=== PATIENT | female | born 1995 | race Caucasian/White ===

== ENCOUNTER 2016-11-16 10:03 | Emergency (ER) | payer SELFPAY ==
[2016-11-16 10:13] VITALS: BMI 49.4
[2016-11-16 10:14] VITALS: BP 129/69
[2016-11-16 10:40] LABS: BILIRUBIN,URINE NEGATIVE (NEGATIVE); BLOOD/HEMOGLOBIN,URINE 1+ (NEGATIVE); GLUCOSE, URINE NEGATIVE (NEGATIVE); KETONES,URINE NEGATIVE (NEGATIVE); LEUKOCYTE ESTERASE ,URINE NEGATIVE (NEGATIVE); NITRITES,URINE NEGATIVE (NEGATIVE); PROTEIN,URINE 2+ (NEGATIVE); UROBILINOGEN,URINE 1+ (NORMAL)
--- NOTE | 2016-11-16 10:40 | DR.GENAD ---
HPI - PCP Primary Care Physician: nfd - HPI Comment HPI Comment: PATIENT SAID URINE SYMTOMS ARE CHRONIC BUT GOT WORSE OVER PAST SEVERAL DAYS. NO FEVER. NO HEMATURIA. - Complaint/Symptoms Chief Complaint Doctors Comments: DYSURIA AND LOWER ABDOMINAL PAIN WITH NAUSEA, MISS PERIOD TIMES SEVERAL DAYS. Chief Complaint:: patient stated she has a overactive bladder and nunez when she urinates. she stated she has had this problem for a awhile but she said it is affecting her job. - Nurses notes reviewed Nurses Notes Review: Yes - Source History Provided: Patient - Mode of Arrival Mode of Arrival: Ambulatory - Timing Onset of Chief Complaint: 11/15/16 Came on: Suddenly - Duration Duration: Constant Duration: Days - Severity Severity: Moderate PMH - PMH Past Medical History: No Past Surgical History: Yes Past Surgical History Comment: bladder surgery when she was 2 - Family History History of Family Medical Conditions: No - Social History Does patient currently use any type of tobacco product: No Have you used tobacco products in the last 12 months: No Type of Tobacco Use: None Does any household member use tobacco: No Alcohol Use: None Do you use any recreational Drugs:: No Lives With: Family Lives Where: Home - infectious screening In the last 2 months have you had wt loss of >10#?: NO Have you had fever, night sweats or hemotysis?: No Have you traveled outside the country in the last 6 months?: No Isolation: Standard ROS - Review of Systems Constitutional: negative: Chills, Fever Eyes: No Symptoms Reported. negative: Eye Pain, Discharge ENTM: No Symptoms Reported Respiratoy: No Symptoms Reported Cardiovascular: No Symptoms Reported Gastrointestinal/Abdominal: Abdominal Pain, Nausea. negative: Diarrhea, Vomiting Genitourinary: Dysuria. negative: Frequency, Hematuria Neurological: Dizziness Musculoskeletal: No Symptoms Reported Integumentary: No Symptoms Reported Hematologic/Lymphatic: No Symptoms Reported Endocrine: No Symptoms Reported All Other Systems: Reviewed and Negative PE - Vital Signs Vitals: Temperature 98.7 F Pulse Rate 72 Respiratory Rate 129 Blood Pressure 129/69 O2 Sat by Pulse Oximetry 100 - General Limitations: No Limitations General Appearance: Alert - Head Head Exam: Normal Inspection - Eyes Eye exam: Normal Appearance - ENT ENT Exam: Normal External Ear Exam External Ear Exam: Normal External Inspection TM/Canal Exam: Bilateral Normal Nose Exam: Normal Nose Exam Mouth Exam: Normal Inspection Throat Exam: Normal Inspection - Neck Neck Exam: Trachea Midline - Chest Chest Inspection: Symmetric Chest Wall Rise - Respiratory Respiratory Exam: Chest Wall Tenderness Respiratory Exam: Bilateral Clear to Auscultation - Cardiovascular Cardiovascular Exam: Regular Rate, Normal Rhythm, Normal Heart Sounds - Abdominal Exam Abdominal Exam: Normal Bowel Sounds, Soft, Tenderness Abdominal Tenderness: RLQ, LLQ, Suprapubic - Extremities Extremities Exam: Normal Inspection - Back Back Exam: Normal Inspection - Neurologic Neurological Exam: Alert, Oriented X3 - Psychiatric Psychiatric Exam: Normal Affect, Normal Mood - Skin Skin Exam: Normal Color MDM - Differential Diagnosis Differential Diagnosis: UTI, , ABDOMINAL PAIN, KIDNEY STONE Course - Treatment Treatment: SEE ORDERS. - Education/Counseling Education/Counseling: Patient, Education Educated On: Diagnosis, Needs for Follow Up ROR - Labs Reviewed Laboratory Results Reviewed?: Yes Laboratory: HCG, Qual Negative <10 mIU/mL 11/16/16 10:55 Specimen Type Clean catch urine 11/16/16 10:20 Urine Color Yellow (YELLOW) 11/16/16 10:20 Urine Appearance Slightly hazy (CLEAR) 11/16/16 10:20 Urine pH 6.0 (5.0 - 8.0) 11/16/16 10:20 Ur Specific [place] 1.020 (1.000-1.030) 11/16/16 10:20 Urine Protein 2+ (NEGATIVE) 11/16/16 10:20 Urine Glucose (UA) Negative (NEGATIVE) 11/16/16 10:20 Urine Ketones Negative (NEGATIVE) 11/16/16 10:20 Urine Occult Blood 1+ (NEGATIVE) 11/16/16 10:20 Urine Nitrite Negative (NEGATIVE) 11/16/16 10:20 Urine Bilirubin Negative (NEGATIVE) 11/16/16 10:20 Urine Urobilinogen 1+ (NORMAL) 11/16/16 10:20 Ur Leukocyte Esterase Negative (NEGATIVE) 11/16/16 10:20 Urine RBC 1 - 4 /HPF (NEGATIVE) 11/16/16 10:20 Urine WBC Rare /HPF (NEGATIVE) 11/16/16 10:20 Ur Squamous Epith Cells Many /HPF (NEGATIVE) 11/16/16 10:20 Urine Bacteria Negative /HPF (NEGATIVE) 11/16/16 10:20 Ur Culture Indicated? No/not indicated 11/16/16 10:20 - Diagnosis Discharge Problem: Dysuria Abdominal pain Qualifiers: Abdominal location: lower abdomen, unspecified Qualified Code(s): R10.30 - Lower abdominal pain, unspecified - Discharge Plan Disposition: HOME, SELF-CARE Condition: Stable Prescriptions: Doxycycline (Monohydrate) [Doxycycline Monohydrate] 100 mg PO BID #20 cap Ketorolac Tromethamine [Toradol Tab] 10 mg PO Q8H PRN #15 tab PRN Reason: Pain Ondansetron HCl [Zofran Tab 4 mg] 4 mg PO Q8H PRN #15 tab PRN Reason: Nausea/Vomiting - Follow ups/Referrals Follow ups/Referrals: NFD,None [Primary Care Provider] - 2 days SAIRA TORRES [STAFF PHYSICIAN] - 2 days - Instructions Instructions: Dysuria, Abdominal Pain, Adult, [id number] Additional Instructions: RETURN TO ED IF WORSE.
[2016-11-16 10:52] LABS: COLOR,URINE YELLOW (YELLOW)
[2016-11-16 10:53] LABS: APPEARANCE,URINE SLIGHTLY HAZY (CLEAR); BACTERIA,URINE NEGATIVE /HPF (NEGATIVE); SQUAMOUS EPITHELIAL CELL,UR MANY /HPF (NEGATIVE)
[2016-11-16 11:34] LABS: SERUM PREGNANCY TEST, QUAL NEGATIVE <10 mIU/mL
== END 2016-11-16 11:53 | disposition home or self-care (01) ==
LOC: ER 10:17
DX: R30.0 Dysuria (principal); R10.84 Generalized abdominal pain
CPT/HCPCS: 36415; 81001; 84703; 99282; 99283

== ENCOUNTER 2016-12-26 14:48 | Emergency (ER) | payer SELFPAY ==
[2016-12-26 14:55] VITALS: BMI 46.4
--- NOTE | 2016-12-26 15:36 | DR.GENAD ---
HPI - PCP Primary Care Physician: NFD - Complaint/Symptoms Chief Complaint Doctors Comments: Patient admits to abdominal pain (lower) wants to get test although has had two positive OTC tests. LMP five week estimated gestaton. Patient denies spotting Chief Complaint:: Pt states she is having abominal pain and has had two positive test. Pt states she has not had any bleeding. - Source History Provided: Patient - Mode of Arrival Mode of Arrival: Ambulatory - Timing Onset of Chief Complaint: 12/12/16 PMH - PMH Past Medical History: No Past Surgical History: No - Family History History of Family Medical Conditions: No - Social History Does patient currently use any type of tobacco product: No Have you used tobacco products in the last 12 months: No Type of Tobacco Use: None Does any household member use tobacco: No Alcohol Use: None Do you use any recreational Drugs:: No Lives With: Significant Other Lives Where: Home - infectious screening In the last 2 months have you had wt loss of >10#?: NO Have you had fever, night sweats or hemotysis?: No Have you traveled outside the country in the last 6 months?: No Isolation: Standard ROS - Review of Systems Eyes: No Symptoms Reported ENTM: No Symptoms Reported Respiratoy: No Symptoms Reported Cardiovascular: No Symptoms Reported Gastrointestinal/Abdominal: Abdominal Pain. negative: Nausea, Vomiting Genitourinary: No Symptoms Reported Neurological: No Symptoms Reported Musculoskeletal: No Symptoms Reported Integumentary: No Symptoms Reported Hematologic/Lymphatic: No Symptoms Reported Endocrine: No Symptoms Reported All Other Systems: Reviewed and Negative PE - Vital Signs Vitals: Pulse Rate 86 Respiratory Rate 18 Blood Pressure 129/69 O2 Sat by Pulse Oximetry 99 - General Limitations: No Limitations General Appearance: Alert, In No Apparent Distress - Head Head Exam: Normal Inspection, Atraumatic - Eyes Eye exam: Normal Appearance, PERRL, EOMI - ENT ENT Exam: Normal Exam External Ear Exam: Normal External Inspection TM/Canal Exam: Bilateral Normal Nose Exam: Normal Nose Exam Mouth Exam: Normal Inspection Throat Exam: Normal Inspection - Neck Neck Exam: Normal Inspection, Full ROM - Chest Chest Inspection: Normal Inspection - Respiratory Respiratory Exam: Normal Lung Sounds Bilat Respiratory Exam: Bilateral Clear to Auscultation - Cardiovascular Cardiovascular Exam: Regular Rate, Normal Rhythm - Abdominal Exam Abdominal Exam: Normal Inspection, Normal Bowel Sounds Abdominal Tenderness: negative: RUQ, RLQ, LUQ, LLQ, Epigastrium, Suprapubic, Diffuse, Mild, Moderate, Severe, Other - Extremities Extremities Exam: Normal Inspection, Full ROM - Back Back Exam: Normal Inspection, Full ROM - Neurologic Neurological Exam: Alert, Oriented X3, CN II-XII Intact - Psychiatric Psychiatric Exam: Normal Affect, Normal Mood - Skin Skin Exam: Warm, Dry, Intact ROR - Labs Reviewed Laboratory: Specimen Type Clean catch urine 12/26/16 15:42 Urine Color Yellow (YELLOW) 12/26/16 15:42 Urine Appearance Slightly hazy (CLEAR) 12/26/16 15:42 Urine pH 8.0 (5.0 - 8.0) 12/26/16 15:42 Ur Specific [place] 1.015 (1.000-1.030) 12/26/16 15:42 Urine Protein Negative (NEGATIVE) 12/26/16 15:42 Urine Glucose (UA) Negative (NEGATIVE) 12/26/16 15:42 Urine Ketones Negative (NEGATIVE) 12/26/16 15:42 Urine Occult Blood Negative (NEGATIVE) 12/26/16 15:42 Urine Nitrite Negative (NEGATIVE) 12/26/16 15:42 Urine Bilirubin Negative (NEGATIVE) 12/26/16 15:42 Urine Urobilinogen Normal (NORMAL) 12/26/16 15:42 Ur Leukocyte Esterase 1+ (NEGATIVE) 12/26/16 15:42 Urine RBC Negative /HPF (NEGATIVE) 12/26/16 15:42 Urine WBC 0 - 3 /HPF (NEGATIVE) 12/26/16 15:42 Ur Squamous Epith Cells Few /HPF (NEGATIVE) 12/26/16 15:42 Urine Bacteria Negative /HPF (NEGATIVE) 12/26/16 15:42 Ur Culture Indicated? No/not indicated 12/26/16 15:42 - Diagnosis Discharge Problem: Abdominal pain during Qualifiers: Trimester: first trimester Qualified Code(s): O26.891 - Other specified related conditions, first trimester; R10.9 - Unspecified abdominal pain - Discharge Plan Condition: Stable - Follow ups/Referrals Follow ups/Referrals: NFD,None [Primary Care Provider] - 3 days - Instructions
[2016-12-26 15:57] LABS: APPEARANCE,URINE SLIGHTLY HAZY (CLEAR); BILIRUBIN,URINE NEGATIVE (NEGATIVE); BLOOD/HEMOGLOBIN,URINE NEGATIVE (NEGATIVE); COLOR,URINE YELLOW (YELLOW); GLUCOSE, URINE NEGATIVE (NEGATIVE); KETONES,URINE NEGATIVE (NEGATIVE); LEUKOCYTE ESTERASE ,URINE 1+ (NEGATIVE); NITRITES,URINE NEGATIVE (NEGATIVE); PROTEIN,URINE NEGATIVE (NEGATIVE); UROBILINOGEN,URINE NORMAL (NORMAL)
[2016-12-26 15:59] LABS: BACTERIA,URINE NEGATIVE /HPF (NEGATIVE); RBC,URINE NEGATIVE /HPF (NEGATIVE); SQUAMOUS EPITHELIAL CELL,UR FEW /HPF (NEGATIVE)
[2016-12-26 18:17] VITALS: BP 128/71
== END 2016-12-26 16:51 | disposition home or self-care (01) ==
LOC: ER 15:08
DX: R10.84 Generalized abdominal pain (principal); O26.891 Other specified pregnancy related conditions, first trimester
CPT/HCPCS: 81001; 99282

== ENCOUNTER 2017-06-22 21:30 | Emergency (ER) | payer OTHER ==
[2017-06-22 21:45] VITALS: BMI 54.8
[2017-06-22 22:15] LABS: BILIRUBIN,URINE NEGATIVE (NEGATIVE); BLOOD/HEMOGLOBIN,URINE 1+ (NEGATIVE); GLUCOSE, URINE NEGATIVE (NEGATIVE); KETONES,URINE NEGATIVE (NEGATIVE); LEUKOCYTE ESTERASE ,URINE NEGATIVE (NEGATIVE); NITRITES,URINE NEGATIVE (NEGATIVE); PROTEIN,URINE NEGATIVE (NEGATIVE); UROBILINOGEN,URINE NORMAL (NORMAL)
--- NOTE | 2017-06-22 22:17 | DR.GENAD ---
HPI - PCP Primary Care Physician: brandi - HPI Comment HPI Comment: HISTORY BELOW. - Complaint/Symptoms Chief Complaint Doctors Comments: PATIENT IS 7MONTHS AND IS HAVING LOWER ABDOMINAL PAIN AND RT FLANK PAIN THAT STARTED TODAY. SHE IS GRAVIA 1 AND PARA O. PATIENT IS NAUSEATED BUT NOT VOMITING. NO FEVER. NO DYSURIA. DENIES VAGINAL BLEEDING OR DISCHARGE. EDC 08/25/2017. Chief Complaint:: pt states" my due date is [id number] i'm hurting in rt lower back and stomach" - Nurses notes reviewed Nurses Notes Review: Yes - Source History Provided: Patient - Mode of Arrival Mode of Arrival: Ambulatory - Timing Onset of Chief Complaint: 06/22/17 Came on: Suddenly - Duration Duration: Constant Duration: Days - Severity Severity: Moderate PMH - PMH Past Medical History: No Past Surgical History: No - Family History History of Family Medical Conditions: Yes - Social History Does any household member use tobacco: No Alcohol Use: None Do you use any recreational Drugs:: No Lives With: Family Lives Where: Home - infectious screening In the last 2 months have you had wt loss of >10#?: NO Have you had fever, night sweats or hemotysis?: No Have you traveled outside the country in the last 6 months?: No Isolation: Standard ROS - Review of Systems Constitutional: No Symptoms Reported. negative: Chills, Fever Eyes: No Symptoms Reported ENTM: No Symptoms Reported Respiratoy: No Symptoms Reported Cardiovascular: No Symptoms Reported Gastrointestinal/Abdominal: Abdominal Pain, Nausea Genitourinary: Pain. negative: Discharge, Dysuria, Frequency, Hematuria, Bleeding Neurological: negative: Headache, Weakness, Dizziness Musculoskeletal: Back Pain, Other (RT FLANK PAIN) Integumentary: No Symptoms Reported Hematologic/Lymphatic: No Symptoms Reported Endocrine: No Symptoms Reported All Other Systems: Reviewed and Negative PE - Vital Signs Vitals: Temperature 98.2 F Pulse Rate [Left Brachial] 77 Pulse Rate 95 Respiratory Rate 18 Blood Pressure [Left Arm] 127/75 Blood Pressure 132/74 O2 Sat by Pulse Oximetry 100 - General Limitations: No Limitations General Appearance: Alert - Head Head Exam: Normal Inspection - Eyes Eye exam: Normal Appearance - ENT ENT Exam: Normal External Ear Exam External Ear Exam: Normal External Inspection TM/Canal Exam: Bilateral Normal Nose Exam: Normal Nose Exam Mouth Exam: Normal Inspection Throat Exam: Normal Inspection - Neck Neck Exam: Trachea Midline. negative: Tenderness, Meningismus, Lymphadenopathy - Chest Chest Inspection: Symmetric Chest Wall Rise - Respiratory Respiratory Exam: Normal Lung Sounds Bilat Respiratory Exam: Bilateral Clear to Auscultation - Cardiovascular Cardiovascular Exam: Regular Rate, Normal Rhythm, Normal Heart Sounds - Abdominal Exam Abdominal Exam: Normal Bowel Sounds, Soft, Tenderness Abdominal Tenderness: Diffuse, Moderate - Extremities Extremities Exam: Normal Inspection - Back Back Exam: Normal Inspection - Neurologic Neurological Exam: Alert, Oriented X3 - Psychiatric Psychiatric Exam: Normal Affect, Normal Mood - Skin Skin Exam: Normal Color [facility] - Additional Information Additional Information Obtained From: Family - Differential Diagnosis Differential Diagnosis: RT FLANK PAIN, LOWER ABDOMEN PAIN, UTI. KIDNEY STONE Course - Treatment Treatment: SEE ORDERS. - Reevaluation 1st: Unchanged - Consultation Consultation Comments: PATIENT ACCEPTED FOR TRANSFER TO [facility] BY DR. HERRERA HER OB DRJeremias - Education/Counseling Education/Counseling: Patient, Family, Education Educated On: Diagnosis, Needs for Follow Up ROR - Labs Reviewed Laboratory Results Reviewed?: Yes Result Diagrams: 06/22/17 22:40 06/22/17 22:40 Laboratory: WBC 15.3 X10^3/uL (3.6-10.0) H 06/22/17 22:40 RBC 4.02 X10^6/uL (3.5-5.4) 06/22/17 22:40 Hgb 11.8 g/dL (12.0-16.0) L 06/22/17 22:40 Hct 34.4 % (36.0-47.0) L 06/22/17 22:40 MCV 85.5 fL (80.0-100.0) 06/22/17 22:40 MCH 29.3 pg (27.0-34.0) 06/22/17 22:40 MCHC 34.3 g/dL (33.0-35.0) 06/22/17 22:40 RDW 12.8 % (11.6-16.5) 06/22/17 22:40 Plt Count 214 X10^3/uL (150.0-450.0) 06/22/17 22:40 MPV 9.0 fL (7.4-11.0) 06/22/17 22:40 Neut % 80.3 % (42.0-75.0) H 06/22/17 22:40 Lymph % 12.0 % (21.0-51.0) L 06/22/17 22:40 Eddy % 6.2 % (0.0-13.0) 06/22/17 22:40 Eos % 1.1 % (0.9-2.9) 06/22/17 22:40 Baso % 0.4 % (0.2-1.0) 06/22/17 22:40 Neut # 12.3 x10^3/uL (2.2-4.8) H 06/22/17 22:40 Lymph # 1.8 X10^3/uL (1.3-2.9) 06/22/17 22:40 Eddy # 1.0 x10^3/uL (0.3-0.8) H 06/22/17 22:40 Eos # 0.2 x10^3/uL (0.0-0.2) 06/22/17 22:40 Baso # 0.1 X10^3/uL (0.0-0.1) 06/22/17 22:40 Absolute Nucleated RBC 0.0 /100WBC 06/22/17 22:40 Sodium 140 mmol/L (136-145) 06/22/17 22:40 Corrected Sodium TNP 06/22/17 22:40 Potassium 4.0 mmol/L (3.5-5.1) 06/22/17 22:40 Chloride 106 mmol/L (98-107) 06/22/17 22:40 Carbon Dioxide 26.3 mmol/L (21-32) 06/22/17 22:40 BUN 8 mg/dL (7-18) 06/22/17 22:40 Creatinine 0.67 mg/dL (0.55-1.02) 06/22/17 22:40 Est GFR (MDRD) Af Amer > 60 (>60) 06/22/17 22:40 Est GFR (MDRD) Non-Af > 60 (>60) 06/22/17 22:40 Glucose 97 mg/dL (65-99) 06/22/17 22:40 Calcium 9.5 mg/dL (8.5-10.1) 06/22/17 22:40 Corrected Calcium 10.6 mg/dL (8.5-10.1) H 06/22/17 22:40 Total Bilirubin 0.20 mg/dL (0.2-1.0) 06/22/17 22:40 AST 14 Units/L (15-37) L 06/22/17 22:40 ALT 20 Units/L (12-78) 06/22/17 22:40 Alkaline Phosphatase 185 Units/L (46-116) H 06/22/17 22:40 Total Protein 6.9 g/dL (6.4-8.2) 06/22/17 22:40 Albumin 2.6 g/dL (3.4-5.0) L 06/22/17 22:40 Globulin 4.3 g/dL (2.5-4.5) 06/22/17 22:40 Albumin/Globulin Ratio 0.6 Ratio (1.1-2.1) L 06/22/17 22:40 Specimen Type Clean catch urine 06/22/17 22:07 Urine Color Yellow (YELLOW) 06/22/17 22:07 Urine Appearance Clear (CLEAR) 06/22/17 22:07 Urine pH 7.0 (5.0 - 8.0) 06/22/17 22:07 Ur Specific [place] 1.010 (1.000-1.030) 06/22/17 22:07 Urine Protein Negative (NEGATIVE) 06/22/17 22:07 Urine Glucose (UA) Negative (NEGATIVE) 06/22/17 22:07 Urine Ketones Negative (NEGATIVE) 06/22/17 22:07 Urine Occult Blood 1+ (NEGATIVE) 06/22/17 22:07 Urine Nitrite Negative (NEGATIVE) 06/22/17 22:07 Urine Bilirubin Negative (NEGATIVE) 06/22/17 22:07 Urine Urobilinogen Normal (NORMAL) 06/22/17 22:07 Ur Leukocyte Esterase Negative (NEGATIVE) 06/22/17 22:07 Urine RBC 1-2 /HPF (NEGATIVE) 06/22/17 22:07 Urine WBC 1-2 /HPF (NEGATIVE) 06/22/17 22:07 Ur Squamous Epith Cells Few /HPF (NEGATIVE) 06/22/17 22:07 Urine Bacteria Negative /HPF (NEGATIVE) 06/22/17 22:07 Ur Culture Indicated? No/not indicated 06/22/17 22:07 - XRAY XRAY Interpreted by: Radiologist XRAY Findings: REPORT DISCUSS WITH PATIENT. - Diagnosis Discharge Problem: Leukocytosis Abdominal pain during Qualifiers: Trimester: third trimester Qualified Code(s): O26.893 - Other specified related conditions, third trimester - Discharge Plan Disposition: 02 XFER [facility] Condition: Stable - Follow ups/Referrals Follow ups/Referrals: CLIVE HERRERA [Primary Care Provider] - 3 days - Instructions
[2017-06-22 22:23] LABS: APPEARANCE,URINE CLEAR (CLEAR); COLOR,URINE YELLOW (YELLOW)
[2017-06-22 22:24] LABS: BACTERIA,URINE NEGATIVE /HPF (NEGATIVE); SQUAMOUS EPITHELIAL CELL,UR FEW /HPF (NEGATIVE)
[2017-06-22 22:49] LABS: BASOPHILS # (AUTO) 0.1 X10^3/uL (0.0-0.1); BASOPHILS % (AUTO) 0.4 % (0.2-1.0); EOSINOPHILS # (AUTO) 0.2 x10^3/uL (0.0-0.2); EOSINOPHILS % (AUTO) 1.1 % (0.9-2.9); HEMATOCRIT 34.4 % (36.0-47.0); HEMOGLOBIN 11.8 g/dL (12.0-16.0); LYMPHOCYTES # (AUTO) 1.8 X10^3/uL (1.3-2.9); MEAN CORPUSCULAR HEMOGLOBIN 29.3 pg (27.0-34.0); MEAN CORPUSCULAR HGB CONC 34.3 g/dL (33.0-35.0); MEAN CORPUSCULAR VOLUME 85.5 fL (80.0-100.0); MONOCYTES % (AUTO) 6.2 % (0.0-13.0); NEUTROPHILS # (AUTO) 12.3 x10^3/uL (2.2-4.8); NEUTROPHILS % (AUTO) 80.3 % (42.0-75.0); PLATELET COUNT 214 X10^3/uL (150.0-450.0); RED BLOOD COUNT 4.02 X10^6/uL (3.5-5.4); RED CELL DISTRIBUTION WIDTH 12.8 % (11.6-16.5); WHITE BLOOD COUNT 15.3 X10^3/uL (3.6-10.0)
[2017-06-22 23:02] LABS: ALANINE AMINOTRANSFERASE 20 Units/L (12-78); ALBUMIN 2.6 g/dL (3.4-5.0); ALKALINE PHOSPHATASE 185 Units/L (46-116); ASPARTATE AMINO TRANSFERASE 14 Units/L (15-37); BLOOD UREA NITROGEN 8 mg/dL (7-18); CALCIUM 9.5 mg/dL (8.5-10.1); CARBON DIOXIDE 26.3 mmol/L (21-32); CHLORIDE 106 mmol/L (98-107); COR CA(FOR HYPOALB) 10.6 mg/dL (8.5-10.1); CREATININE 0.67 mg/dL (0.55-1.02); SODIUM 140 mmol/L (136-145); TOTAL PROTEIN 6.9 g/dL (6.4-8.2); eGFR BLACK RACES > 60 (>60); eGFR NON BLACK RACES > 60 (>60)
[2017-06-23] MEDS ORDERED: TYLENOL 325 MG TAB PO ONE ×2 (00:06→00:08)
--- NOTE | 2017-06-23 00:13 | US ---
Renal Sonogram Indication: Right flank pain, Technique: Multiple hernandez scale and Doppler images of the right and left kidneys and bladder were obta ined Findings: The right kidney measures 13.1 cm. The left kidney measures 10.4cm. The right kidney demonstrates mild fullness of the renal pelvis and proximal right ureter potentiall y representing physiologic compression by gravid uterus however obstructing stone cannot be excluded. Renal cord ingesting and thickness is normal. The left kidney demonstrates no nephrolithiasis, hydro nephrosis or abnormal renal cortical echogenicity. Urinary bladder is unremarkable. IMPRESSION: 1.Mild increased prominence of the right renal pelvis and proximal ureter is indeterminate potentiall y this represents physiologic fullness related to compression by the gravid uterus however hydronephr osis in the setting of obstruction is not excluded. 2. No sonographic abnormality within the left kidney or urinary bladder. Reported By:
--- NOTE | 2017-06-23 00:17 | US ---
OB ultrasound greater than 14 weeks Indication: Right flank pain Comparison: None avail Technique: Multiple grayscale and color flow Doppler images of the pelvis were obtained with focused evaluation of the fetus. Findings: A viable single intrauterine is identified with heart tones of 148 beats per minute. A vertex presentation is observed with a posterior placenta. Evaluation of the anatomy including the bladder, kidneys, heart and three-vessel cord demonstra te no abnormality. Value Estimated Gestational Age BPD 8.47 cm 34 weeks 1 day HC 29.42 cm 32 weeks, 3 days AC 26.54 cm 30 weeks, 5 days FL 6.02 cm 3 1 weeks, 2 days Estimated gestational age is 32 weeks 1 day IMPRESSION: A viable single intrauterine with an average ultrasound age of 32 weeks, 1 day. The placenta is posteriorly located and in near proximity to the internal cervical os, correlation wi th pelvic sonogram prior to delivery is recommended to exclude a placenta previa. Reported By:
[2017-06-23 01:13] VITALS: BP 127/75
== END 2017-06-23 01:45 | disposition short-term general hospital (02) ==
LOC: ER 21:56
DX: O26.893 Other specified pregnancy related conditions, third trimester (principal); D72.829 Elevated white blood cell count, unspecified; Z3A.32 32 weeks gestation of pregnancy
CPT/HCPCS: 36415; 76770; 76815; 80053; 81001; 85025; 96365; 99283; 99285; A4222

== ENCOUNTER 2017-08-18 06:05 | Inpatient (IN) | payer OTHER ==
[2017-08-18 06:25] VITALS: BMI 58.5
[2017-08-18] MEDS ORDERED: D5 1/2 NS 1000 ML 1,000 ML IV ONE ×2 (06:35→22:10)
[2017-08-18 06:41] LABS: BILIRUBIN,URINE 2+ (NEGATIVE); BLOOD/HEMOGLOBIN,URINE 5+ (NEGATIVE); GLUCOSE, URINE NEGATIVE (NEGATIVE); KETONES,URINE NEGATIVE (NEGATIVE); LEUKOCYTE ESTERASE ,URINE 3+ (NEGATIVE); NITRITES,URINE POSITIVE (NEGATIVE); PROTEIN,URINE 3+ (NEGATIVE); UROBILINOGEN,URINE 1+ (NORMAL)
[2017-08-18 06:45] LABS: BASOPHILS # (AUTO) 0.1 X10^3/uL (0.0-0.1); BASOPHILS % (AUTO) 1.1 % (0.2-1.0); EOSINOPHILS # (AUTO) 0.2 x10^3/uL (0.0-0.2); EOSINOPHILS % (AUTO) 1.8 % (0.9-2.9); HEMATOCRIT 38.5 % (36.0-47.0); HEMOGLOBIN 13.5 g/dL (12.0-16.0); LYMPHOCYTES % (AUTO) 15.5 % (21.0-51.0); MEAN CORPUSCULAR HEMOGLOBIN 28.9 pg (27.0-34.0); MEAN CORPUSCULAR HGB CONC 34.9 g/dL (33.0-35.0); MEAN CORPUSCULAR VOLUME 82.7 fL (80.0-100.0); MEAN PLATELET VOLUME 10.3 fL (7.4-11.0); MONOCYTES # (AUTO) 0.8 x10^3/uL (0.3-0.8); NEUTROPHILS # (AUTO) 9.8 x10^3/uL (2.2-4.8); NEUTROPHILS % (AUTO) 75.6 % (42.0-75.0); PLATELET COUNT 249 X10^3/uL (150.0-450.0); RED BLOOD COUNT 4.66 X10^6/uL (3.5-5.4); RED CELL DISTRIBUTION WIDTH 13.7 % (11.6-16.5)
[2017-08-18 06:47] LABS: BLOOD UREA NITROGEN 7 mg/dL (7-18); CALCIUM 8.9 mg/dL (8.5-10.1); CARBON DIOXIDE 19.7 mmol/L (21-32); CHLORIDE 105 mmol/L (98-107); CREATININE 0.67 mg/dL (0.55-1.02); SODIUM 138 mmol/L (136-145); eGFR BLACK RACES > 60 (>60); eGFR NON BLACK RACES > 60 (>60)
[2017-08-18] MEDS ORDERED: AMPICILLIN VIAL 2 GM ONE (06:55)
[2017-08-18] MEDS ORDERED: NS 100 ML IV 100 ML IV ONE ×2 (06:55→10:38)
[2017-08-18 06:57] LABS: COLOR,URINE YELLOW (YELLOW)
[2017-08-18 06:58] LABS: AMORPHOUS SEDIMENT,UR 4+ /HPF (NEGATIVE); APPEARANCE,URINE CLOUDY (CLEAR); BACTERIA,URINE TRACE /HPF (NEGATIVE); RBC,URINE 15-20 /HPF (NEGATIVE); SQUAMOUS EPITHELIAL CELL,UR MANY /HPF (NEGATIVE)
[2017-08-18 07:00] LABS: AMNISURE ROM TEST NO MEMBRANES RUPTURE (NO RUPTURE)
[2017-08-18] MEDS ORDERED: PITOCIN IVP ONE (07:00)
[2017-08-18] MEDS ORDERED: D5 1/2 NS 1000 ML 1,000 ML IV SCH ×3 (07:00→21:00)
[2017-08-18] MEDS ORDERED: D5LR 1L W PITOCIN 10 UNITS/L 10 UNITS/1,000 ML BAG IV PRN (07:00)
[2017-08-18] MEDS ORDERED: AMPICILLIN VIAL 2 GM 2 GM in NS 100 ML IV + SPIKE MINIBAG* 100 ML IV SCH (07:00)
[2017-08-18] MEDS ORDERED: NUBAIN INJ 200 MG VIAL MULTIDOSE IVP PRN (07:00)
[2017-08-18] MEDS ORDERED: LR 1000 ML IV 1,000 ML IV ONE ×4 (07:21→12:26)
[2017-08-18] MEDS ORDERED: NS 1000 ML 1,000 ML ONE (07:21)
[2017-08-18] MEDS ORDERED: NAROPIN EPIDURAL 0.2% + FENTANYL 90MCG 60 ML EPI ONE (07:22)
[2017-08-18] MEDS ORDERED: D5LR 1L W PITOCIN 10 UNITS/L 10 UNITS/1,000 ML BAG IV ONE (07:22)
[2017-08-18] MEDS ORDERED: PITOCIN ONE ×2 (07:22→09:28)
[2017-08-18] MEDS ORDERED: D5 1/2 NS 1L W PITOCIN 20 UNITS/L 20 UNITS/1,000 ML BAG IV ONE (07:22)
[2017-08-18] MEDS ORDERED: NUBAIN INJ 10 ONE (07:34)
[2017-08-18] MEDS ORDERED: FENTANYL INJ 100 mcg ONE (07:40)
[2017-08-18] MEDS ORDERED: FENTANYL INJ 100 mcg EPI ONE (07:47)
[2017-08-18] MEDS ORDERED: NS 1000 ML 1,000 ML IV ONE (07:47)
[2017-08-18] MEDS ORDERED: XYLOCAINE 1 % (PLAIN) ONE ×2 (08:00→12:18)
[2017-08-18] MEDS ORDERED: NAROPIN EPIDURAL 0.2% 60 ML with FENTANYL INJ 100 mcg 90 MCG IVP SCH ×2 (08:00)
[2017-08-18] MEDS ORDERED: XYLOCAINE 1 % (PLAIN) IM ONE (09:07)
[2017-08-18] MEDS ORDERED: DIPRIVAN VIAL ONE (09:28)
[2017-08-18] MEDS ORDERED: XYLOCAINE 2 % (PLAIN) ONE (09:28)
[2017-08-18] MEDS ORDERED: ZOFRAN INJ 4 MG VIAL ONE (09:28)
[2017-08-18] MEDS ORDERED: KETALAR ONE (09:28)
[2017-08-18] MEDS ORDERED: REGLAN INJ 10 MG VIAL ONE (09:28)
[2017-08-18] MEDS ORDERED: VERSED ONE (09:28)
[2017-08-18 09:34] LABS: BILIRUBIN,URINE NEGATIVE (NEGATIVE); BLOOD/HEMOGLOBIN,URINE 2+ (NEGATIVE); GLUCOSE, URINE NEGATIVE (NEGATIVE); KETONES,URINE NEGATIVE (NEGATIVE); LEUKOCYTE ESTERASE ,URINE 3+ (NEGATIVE); NITRITES,URINE POSITIVE (NEGATIVE); PH,URINE 6.5 (5.0 - 8.0); PROTEIN,URINE 2+ (NEGATIVE); UROBILINOGEN,URINE NORMAL (NORMAL)
[2017-08-18 09:45] LABS: AMORPHOUS SEDIMENT,UR TRACE /HPF (NEGATIVE); APPEARANCE,URINE HAZY (CLEAR); BACTERIA,URINE 1+ /HPF (NEGATIVE); COLOR,URINE YELLOW (YELLOW); RENAL EPITHELIAL CELLS,URINE FEW /HPF (NEGATIVE); SQUAMOUS EPITHELIAL CELL,UR FEW /HPF (NEGATIVE)
[2017-08-18 09:46] LABS: MUCUS,URINE FEW /HPF (NEGATIVE)
[2017-08-18 10:17] LABS: CHLAMYDIA TRACH URINE NOT DETECTED (NOT DETECT)
[2017-08-18] MEDS ORDERED: AMPICILLIN VIAL 1 GM ONE (10:37)
[2017-08-18] MEDS ORDERED: AMPICILLIN VIAL 1 GM 1 GM in NS 50 ML IV + SPIKE MINIBAG* 50 ML IV SCH (11:04)
[2017-08-18] MEDS ORDERED: DURAMORPH ONE (12:17)
[2017-08-18] MEDS ORDERED: MARCAINE 0.5% ONE (12:19)
[2017-08-18] MEDS ORDERED: MYLICON TAB 80 MG CHEW PO PRN (13:52)
[2017-08-18] MEDS ORDERED: MOTRIN TAB 800 MG PO PRN (13:52)
[2017-08-18] MEDS ORDERED: BENADRYL INJ 50 MG VIAL IVP PRN (13:59)
[2017-08-18] MEDS ORDERED: PHENERGAN INJ 25 MG IVP PRN (13:59)
[2017-08-18] MEDS ORDERED: REGLAN INJ 10 MG VIAL IVP PRN (13:59)
[2017-08-18] MEDS ORDERED: ZOFRAN INJ 4 MG VIAL IVP PRN (13:59)
[2017-08-18] MEDS ORDERED: D5 1/2 NS 1000 ML 1,000 ML with PITOCIN 20 UNITS IV SCH ×2 (14:00)
[2017-08-18] MEDS ORDERED: NS IRRIGATION 1000 ML 1,000 ML IR ONE (14:00)
[2017-08-18] MEDS ORDERED: ADACEL TDaP IM ONE (14:34)
[2017-08-18] MEDS: ZANTAC PO SCH (20:43)
[2017-08-18] MEDS: D5 1/2 NS 1000 ML 1,000 ML IV SCH (22:11)
[2017-08-19 05:08] LABS: HEMATOCRIT 34.7 % (36.0-47.0); HEMOGLOBIN 11.9 g/dL (12.0-16.0)
[2017-08-19] MEDS: D5 1/2 NS 1000 ML 1,000 ML IV SCH (06:17)
[2017-08-19] MEDS: PRENATAL PLUS PO SCH (09:36)
[2017-08-19] MEDS: ZANTAC PO SCH ×2 (09:36→21:20)
[2017-08-19] MEDS: MEFOXIN IV SCH ×2 (13:00→21:20)
[2017-08-19] MEDS: NS IV SCH ×2 (13:00→21:20)
[2017-08-20] MEDS: NS IV SCH (05:24)
[2017-08-20] MEDS: MEFOXIN IV SCH (05:24)
[2017-08-20 07:56] VITALS: BP 139/79
[2017-08-20] MEDS: PRENATAL PLUS PO SCH (08:50)
[2017-08-20] MEDS: ZANTAC PO SCH (08:50)
== END 2017-08-20 11:32 | disposition home or self-care (01) | DRG 766 ==
LOC: ER 06:05 → LD 06:44 → MED/SURG 14:28
PROVIDERS: ADMIT Obstetrics & Gynecology Obstetrics; ATTEND Obstetrics & Gynecology Obstetrics
PROC: 3E0234Z Introduction of Serum, Toxoid and Vaccine into Muscle, Percutaneous Approach (ICD-10-PCS; 2017-08-18)
PROC: 10D00Z1 Extraction of Products of Conception, Low, Open Approach (ICD-10-PCS; principal; 2017-08-18 12:30)
DX: O65.8 Obstructed labor due to other maternal pelvic abnormalities (principal); Z37.0 Single live birth; O99.824 Streptococcus B carrier state complicating childbirth; O77.0 Labor and delivery complicated by meconium in amniotic fluid; Z3A.38 38 weeks gestation of pregnancy; B95.1 Streptococcus, group B, as the cause of diseases classified elsewhere; Z23 Encounter for immunization
CPT/HCPCS: 36415; 80048; 80307; 81001; 84112; 85014; 85018; 85025; 86592; 86850; 86900; 86901; 87086; 87491; 87591; 94640; 96365; 99284; A4222; S0020; S0197; G0434; J0290; J2001; J2250; J2300; J2405; J2590; J2765; J3010; J3490; J7042; J7120